=== PATIENT | female | born 1975 | race Caucasian/White ===

== ENCOUNTER 2024-04-03 15:31 | Emergency (ER) | payer MEDICAID ==
[~2024-04-03] VITALS: Ht 1676.4 cm; Wt 70.3 kg
[2024-04-03] MEDS ORDERED: OXYC-128 PO (16:16)
[2024-04-03] MEDS ORDERED: IBUP-1955 PO (16:59)
[2024-04-03 18:22] VITALS: BP 116/42; O2SAT 96
== END 2024-04-03 18:24 | disposition home or self-care (01) ==
LOC: ER 15:31
DX: S69.81XA Other specified injuries of right wrist, hand and finger(s), initial encounter (principal); Z79.899 Other long term (current) drug therapy; X50.0XXA Overexertion from strenuous movement or load, initial encounter; X50.1XXA Overexertion from prolonged static or awkward postures, initial encounter; Y93.89 Activity, other specified; Y92.89 Other specified places as the place of occurrence of the external cause; Y99.8 Other external cause status
CPT/HCPCS: 73130; A4606; A4663